=== PATIENT | male | born 1985 | race American Indian/Alaskan Native ===

== ENCOUNTER 2016-12-06 07:07 | Emergency (ER) | payer BC ==
[2016-12-06 07:36] VITALS: BP 141/93
[2016-12-06] MEDS ORDERED: MORPHINE IM ONE (08:00)
[2016-12-06] MEDS ORDERED: MORPHINE ONE (08:01)
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
[2016-12-06] MEDS ORDERED: TORADOL IM ONE (08:56)
[2016-12-06] MEDS ORDERED: TRIMOX PO ONE (08:56)
== END 2016-12-06 09:20 | disposition home or self-care (01) ==
LOC: ED 07:07
DX: S02.2XXA Fracture of nasal bones, initial encounter for closed fracture (principal); S02.401A Maxillary fracture, unspecified side, initial encounter for closed fracture; I10 Essential (primary) hypertension; Y08.89XA Assault by other specified means, initial encounter; Y93.9 Activity, unspecified; Y92.9 Unspecified place or not applicable; Y99.9 Unspecified external cause status
CPT/HCPCS: 70486; 96372; 99283; J1885; J2270